=== PATIENT | male | born 1965 | race Asian ===

== ENCOUNTER 2016-04-18 09:16 | Day surgery (SDC) | payer OTHER ==
[~2016-04-18] VITALS: Ht 172.7 cm; Wt 64.1 kg
[2016-04-18] VITALS (13 sets, daily range): BP systolic 109–131; BP diastolic 73–82; PULSE 56–75; RESP 15–24; Ht 172.7 cm; Wt 64.1 kg
[~2016-04-18 09:16] MED LIST: CEFAZOLIN 2 GM/50 ML (PMX) 50 ML IVPB SCH; GLIP5TAB13 PO; METF1000 PO; SOD CHLORIDE 0.9% 1,000 ML IV SCH
[2016-04-18 10:50] LABS: BASOPHILS % 0.4 % (0.0-2.0); EOSINOPHILS # 0.3 10^3/ul (0.0-0.5); EOSINOPHILS % 3.4 % (0.0-7.0); HEMATOCRIT 45.5 % (42.0-52.0); HEMOGLOBIN 15.3 g/dl (14.0-18.0); LYMPHOCYTES # 2.3 10^3/ul (0.8-2.9); LYMPHOCYTES % 29.8 % (15.0-51.0); MEAN CORPUSCULAR HEMOGLOBIN 29.1 pg (29.0-33.0); MEAN CORPUSCULAR HGB CONC 33.7 g/dl (32.0-37.0); MEAN CORPUSCULAR VOLUME 86.2 fl (82.0-101.0); MEAN PLATELET VOLUME 8.7 fl (7.4-10.4); MONOCYTE # 0.6 10^3/ul (0.3-0.9); MONOCYTES % 8.1 % (0.0-11.0); NEUTROPHIL # 4.6 10^3/ul (1.6-7.5); NEUTROPHILS % 58.3 % (39.0-77.0); PLATELET COUNT 272 10^3/UL (140-440); RED BLOOD COUNT 5.27 10^6/ul (4.70-6.10); RED CELL DISTRIBUTION WIDTH 13.4 % (11.5-14.5); UNCORRECTED WBC 7.8 10^3/ul (4.8-10.8); WHITE BLOOD COUNT 7.8 10^3/ul (4.8-10.8)
[2016-04-18 10:52] LABS: CONDITION 1
[2016-04-18 10:54] LABS: INR 0.95; PROTIME 12.7 Sec (12.2-14.2)
[2016-04-18 10:55] LABS: PARTIAL THROMBOPLASTIN TIME 29.4 Sec (25.0-35.0)
--- NOTE | 2016-04-18 11:02 | RADRPT ---
PROCEDURE: XR Chest. CLINICAL INDICATION: Planning for inguinal hernia repair. Preop chest x-ray. TECHNIQUE: Single frontal view of the chest was obtained COMPARISON: No. FINDINGS: The heart is normal in size. The left-sided aorta is normal. The trachea and hilar structures are normal. The lungs are clear. The diaphragms are flattened. No pleural effusion is noted. There ar e degenerative osteophytes in the thoracic spine. IMPRESSION: 1. 1 hyperinflation. 2. Spondylosis of the thoracic spine. 3. No evidence of active cardiopulmonary disease. RPTAT:AAJJ Physician Damaris Date Time Electronically viewed and signed by Jose De Jesus Sampson Physician on 04/18/2016 11:02 WANDA/
[2016-04-18 11:06] LABS: CALCIUM 9.1 mg/dl (8.4-10.2); CREATININE 0.74 mg/dl (0.61-1.24); POTASSIUM 4.3 mmol/L (3.5-5.1)
[2016-04-18] MEDS ORDERED: POLYMYXIN/BACITRACIN 1L IRRIG ONE (13:11)
[2016-04-18] MEDS ORDERED: FENTAnyl 50 MCG/ML VIAL ONE (13:32)
[2016-04-18] MEDS ORDERED: BUPIVACAINE 0.25% (MPF) 30 ML INJ ONE (13:48)
[2016-04-18] MEDS ORDERED: HYDROmorphONE (0.2 MG/ML) 10ML SYG IV PRN ×2 (14:00)
[2016-04-18] MEDS ORDERED: NEOSTIGMINE 3 MG/3 ML SYRINGE ONE (14:00)
[2016-04-18] MEDS ORDERED: ONDANSETRON 4 MG INJ IV PRN (14:00)
[2016-04-18] MEDS ORDERED: METOCLOPRAMIDE 10 MG INJ IV PRN (14:00)
[2016-04-18] MEDS ORDERED: MEPERIDINE 25 MG INJ IV PRN (14:00)
[2016-04-18] MEDS ORDERED: FAMOTIDINE 20 MG INJ ONE (14:00)
[2016-04-18] MEDS ORDERED: SUCCINYLCHOLINE CHLORIDE 100 MG/5 ML SYG IV ONE (14:00)
[2016-04-18] MEDS ORDERED: FENTAnyl 50 MCG/ML VIAL IV PRN ×2 (14:00)
[2016-04-18] MEDS ORDERED: DIPHENHYDRAMINE 50 MG INJ IV PRN (14:00)
[2016-04-18] MEDS ORDERED: ROCURONIUM 50 MG INJ ONE (14:00)
[2016-04-18] MEDS ORDERED: GLYCOPYRROLATE 0.4 MG INJ ONE (14:00)
[2016-04-18] MEDS ORDERED: CEFAZOLIN 1 GM INJ ONE (14:00)
[2016-04-18] MEDS ORDERED: LIDOCAINE 2% (SDV) 5 ML INJ ONE (14:00)
[2016-04-18] MEDS ORDERED: BUPIVACAINE 0.25% (MPF) 30 ML INJ INJ ONE (14:08)
[2016-04-18] MEDS: HYDROmorphONE (0.2 MG/ML) 10ML SYG IV PRN ×3 (14:28→14:57)
[2016-04-18] MEDS ORDERED: HYDROCODONE/APAP (5/325) TAB PO ONE (14:30)
--- NOTE | 2016-04-18 16:33 | OPR ---
DATE OF OPERATION: 04/18/2016 INDICATIONS: This is a 50-year-old male with a left inguinal hernia. He requests surgical repair. Risks, alternatives, benefits were discussed with the patient. Patient expressed understanding and consents to the operation. PREOPERATIVE DIAGNOSIS: Left inguinal hernia. POSTOPERATIVE DIAGNOSIS: Left inguinal hernia. OPERATION: Open left inguinal hernia repair with medium size Ultrapro hernia system mesh. SURGEON: Montrell Cannon MD SPECIMENS: None. COMPLICATIONS: None. ANESTHESIA: General. DESCRIPTION OF PROCEDURE: The patient was taken to the OR and prepped and draped in the usual steri le fashion. Surgical timeout was performed. IV antibiotics were given. Left inguinal oblique inci fred is made with a 10 blade. Dissection cautery was carried down to external oblique fascia which was opened with a 15 blade. This incision is extended medial inferiorly and lateral superiorly with Metzenbaum scissors. Cord structures were encircled with a Arianne drain. Indirect hernia was kem ntified and bolstered with additional portions of the UltraPro hernia system mesh. Disk is secured in place with a running 0 Prolene from the pubic tubercle along the shelving edge of the inguinal li gament superiorly to the internal oblique. This is secured with interrupted 3-0 Vicryl. Onlay mesh was secured in a similar fashion with a running 0 Prolene from the pubic tubercle along the shelvin g edge of the inguinal ligament. Straps are created and reapproximated with interrupted 0 Prolene t o recreate the inguinal ring superiorly to the internal oblique. Superior to the internal oblique, the onlay mesh was secured with interrupted 3-0 Vicryl. The external oblique fascia was closed in a running 3-0 Vicryl, Taj's was closed with interrupted 3-0 Vicryl. Skin was closed using skin st aples. Local anesthesia was injected. Dry dressings were applied. Dictated By: MONTRELL ANDERSEN/YA Conf#: [id number] DID#: [id number]
--- NOTE | 2016-04-20 15:48 | RADRPT ---
Vent Rate: 68 bpm RR Interval: 0 msec MN Interval: 166 msec QRS Duration: 86 msec QT Interval: 380 msec QTC Interval: 404 msec P-R-T [place]: 31 - 77 - 67 degrees Normal sinus rhythm Normal ECG Electronically Signed By: Jimbo Raymundo [id number]
== END 2016-04-18 16:45 | disposition home or self-care (01) ==
LOC: SDS 09:16
PROVIDERS: ATTEND Surgery
DX: K40.90 Unilateral inguinal hernia, without obstruction or gangrene, not specified as recurrent (principal); E11.9 Type 2 diabetes mellitus without complications
CPT/HCPCS: 49505; 71010; 80048; 82962; 85025; 85610; 85730; 93005; C1781; J0330; J0690; J1170; J2405; J2710; J3010; Z7512; Z7610